=== PATIENT | female | born 1990 | race Caucasian/White ===

== ENCOUNTER 2019-01-10 19:42 | Emergency (ER) | payer MEDICAID ==
[~2019-01-10] VITALS: Ht 154.9 cm; Wt 63.0 kg
[2019-01-10 19:45] VITALS: Ht 154.9 cm; Wt 63.0 kg
[2019-01-10 21:35] VITALS: BP 127/88
== END 2019-01-10 21:35 | disposition home or self-care (01) ==
LOC: ED 19:42
DX: K21.9 Gastro-esophageal reflux disease without esophagitis (principal)

== ENCOUNTER 2019-01-11 19:20 | Emergency (ER) | payer MEDICAID ==
[~2019-01-11] VITALS: Ht 154.9 cm; Wt 63.0 kg
[2019-01-11 20:06] LABS: BASOPHIL % 0.4 % (0-2); PLATELET COUNT 200 x10^3mcL (130-400); RED CELL DISTRIBUTION WIDTH 13.2 % (11.5-14.5)
[2019-01-11 20:12] LABS: CALCIUM 8.2 mg/dL (8.5-10.1); CARBON DIOXIDE 29.8 mmol/L (21-32); CHLORIDE SERUM 105 mmol/L (98-107); CREATININE SERUM 0.6 mg/dL (0.6-1.0); GFR1 > 60 mL/min; GLUCOSE SERUM 113 mg/dL (74-106); POTASSIUM SERUM 3.6 mmol/L (3.5-5.1); SODIUM SERUM 141 mmol/L (136-145)
[2019-01-11 20:16] LABS: ALKALINE PHOSPHATASE 65 U/L (46-116); ALT/SGPT 8 U/L (14-59); AMYLASE 46 U/L (25-115); AST/SGOT 23 U/L (15-37); BILIRUBIN TOTAL 0.47 mg/dL (0.20-1.00); LIPASE 79 IU/L (73-393)
[2019-01-11 20:23] LABS: ALBUMIN 3.1 g/dL (3.4-5.0)
[2019-01-11 22:54] VITALS: BP 102/40
== END 2019-01-11 22:54 | disposition home or self-care (01) ==
LOC: ED 19:20
PROVIDERS: Specialist
DX: R10.816 Epigastric abdominal tenderness (principal)
CPT/HCPCS: J1885; J7030; Q0092

== ENCOUNTER 2019-01-14 08:59 | Emergency (ER) | payer MEDICAID ==
[~2019-01-14] VITALS: Ht 154.9 cm; Wt 63.5 kg
[2019-01-14 09:57] LABS: CALCIUM 8.4 mg/dL (8.5-10.1); CARBON DIOXIDE 31.1 mmol/L (21-32); CHLORIDE SERUM 105 mmol/L (98-107); CREATININE SERUM 0.7 mg/dL (0.6-1.0); GFR1 > 60 mL/min; GLUCOSE SERUM 96 mg/dL (74-106); POTASSIUM SERUM 3.5 mmol/L (3.5-5.1); SODIUM SERUM 141 mmol/L (136-145)
[2019-01-14 10:02] LABS: ALBUMIN 2.9 g/dL (3.4-5.0); ALKALINE PHOSPHATASE 70 U/L (46-116); ALT/SGPT 40 U/L (14-59); AST/SGOT 34 U/L (15-37); BILIRUBIN TOTAL 0.8 mg/dL (0.20-1.00); LIPASE 76 IU/L (73-393); TOTAL PROTEIN, SERUM 6.4 g/dL (6.4-8.2)
[2019-01-14 10:16] LABS: BASOPHIL % 0.4 % (0-2); PLATELET COUNT 192 x10^3mcL (130-400); RED CELL DISTRIBUTION WIDTH 13.3 % (11.5-14.5)
[2019-01-14 10:17] LABS: UA SPECIFIC GRAVITY 1.015 (1.005-1.035); microscopic required? YES; urine erythrocyte 1+ (NEGATIVE)
[2019-01-14 12:20] VITALS: BP 127/70
== END 2019-01-14 12:40 | disposition home or self-care (01) ==
LOC: ED 08:59
PROVIDERS: Emergency Medicine
DX: R10.816 Epigastric abdominal tenderness (principal); R19.7 Diarrhea, unspecified
CPT/HCPCS: Q0162

== ENCOUNTER 2019-02-09 19:36 | Emergency (ER) | payer MEDICAID ==
[~2019-02-09] VITALS: Ht 154.9 cm; Wt 62.1 kg
[2019-02-09 19:59] VITALS: Ht 154.9 cm; Wt 62.1 kg
[2019-02-09 22:04] VITALS: BP 120/62
== END 2019-02-09 22:04 | disposition home or self-care (01) ==
LOC: ED 19:36
DX: S90.32XA Contusion of left foot, initial encounter (principal); W20.8XXA Other cause of strike by thrown, projected or falling object, initial encounter; Y93.89 Activity, other specified; Y92.89 Other specified places as the place of occurrence of the external cause; Y99.8 Other external cause status

== ENCOUNTER 2019-05-30 08:25 | Emergency (ER) | payer MEDICAID ==
[~2019-05-30] VITALS: Ht 154.9 cm; Wt 64.9 kg
[2019-05-30 08:39] VITALS: BP 100/59; Ht 154.9 cm; Wt 64.9 kg
== END 2019-05-30 09:54 | disposition home or self-care (01) ==
LOC: ED 08:25
DX: J11.1 Influenza due to unidentified influenza virus with other respiratory manifestations (principal)

== ENCOUNTER 2019-06-04 11:34 | Emergency (ER) | payer MEDICAID ==
[~2019-06-04] VITALS: Ht 154.9 cm; Wt 64.4 kg
[2019-06-04 12:16] VITALS: BP 124/64; Ht 154.9 cm; Wt 64.4 kg
== END 2019-06-04 14:13 | disposition home or self-care (01) ==
LOC: ED 11:34
DX: L60.0 Ingrowing nail (principal)